=== PATIENT | male | born 1970 | race Caucasian/White ===

== ENCOUNTER 2018-05-13 22:00 | Inpatient (IN) | payer BC ==
[2018-05-13] MEDS: SOD CHLORIDE 0.9% 1,000 ML IV (23:55)
[2018-05-14] MEDS ORDERED: NACL 0.9% 3 ML SYG IV
[2018-05-14] MEDS ORDERED: BISACODYL (EC) 5 MG TAB PO
[2018-05-14] MEDS ORDERED: DOCUSATE SODIUM 100 MG CAP PO
[2018-05-14] MEDS: PANTOPRAZOLE IV 80 MG in SOD CHLORIDE 0.9% 100 ML IVPB (01:00)
[2018-05-14] MEDS: OCTREOTIDE 50 MCG in SOD CHLORIDE 0.9% 50 ML IVPB (01:04)
[2018-05-14 01:14] LABS: ADD MAN DIFF? NO
[2018-05-14] MEDS: THIAMINE 200 MG INJ IM ×3 (01:14→08:28)
[2018-05-14 01:16] LABS: ABNORMAL IP MESSAGE 1; BASOPHILS % 0.4 % (0.0-2.0); EOSINOPHILS % 0.2 % (0.0-7.0); HEMATOCRIT 24.5 % (42.0-52.0); HEMOGLOBIN 8.3 g/dl (14.0-18.0); LYMPHOCYTES # 1.3 10^3/ul (0.8-2.9); LYMPHOCYTES % 24.8 % (15.0-51.0); MEAN CORPUSCULAR HEMOGLOBIN 30.4 pg (29.0-33.0); MEAN CORPUSCULAR HGB CONC 33.9 g/dl (32.0-37.0); MEAN CORPUSCULAR VOLUME 89.7 fl (82.0-101.0); MEAN PLATELET VOLUME 10.4 fl (7.4-10.4); MONOCYTE # 0.4 10^3/ul (0.3-0.9); MONOCYTES % 7.1 % (0.0-11.0); NEUTROPHIL # 3.5 10^3/ul (1.6-7.5); NEUTROPHILS % 67.1 % (39.0-77.0); PLATELET COUNT 89 10^3/UL (140-415); POSITIVE DIFF @See below; RED BLOOD COUNT 2.73 10^6/ul (4.70-6.10)
[2018-05-14 01:16] LABS: WHITE BLOOD COUNT 5.2 10^3/ul (4.8-10.8)
[2018-05-14] MEDS: PANTOPRAZOLE IV 80 MG in SOD CHLORIDE 0.9% 100 ML IV ×2 (01:19→10:00)
[2018-05-14] MEDS: OCTREOTIDE 1 MG in DEXTROSE 5% 95 ML IV (01:23)
[2018-05-14] MEDS: ONDANSETRON 4 MG INJ IV (01:30)
[2018-05-14 01:34] LABS: ALANINE AMINOTRANSFERASE 50 IU/L (13-69); ALBUMIN 2.8 g/dl (3.3-4.9); ALBUMIN/GLOBULIN RATIO 1.27; ALKALINE PHOSPHATASE 54 IU/L (42-121); ANION GAP 8 (5-13); ASPARTATE AMINO TRANSFERASE 43 IU/L (15-46); BLOOD UREA NITROGEN 9 mg/dl (7-20); CARBON DIOXIDE 25 mmol/L (21-31); CHLORIDE 103 mmol/L (97-110); CHOL/HDL RATIO 1.5 RATIO; CHOLESTEROL 109 mg/dl (100-200); CREATININE 0.68 mg/dl (0.61-1.24); Estimated GFR > 60 mL/min (>60); GLUCOSE 85 mg/dl (70-220); HDL CHOLESTEROL 69 mg/dl (27-67); LDL CHOLESTEROL,CALCULATED 34 mg/dl; POTASSIUM 3.8 mmol/L (3.5-5.1); SODIUM 136 mmol/L (135-144); TRIGLYCERIDES 32 mg/dl (0-149)
[2018-05-14 01:35] LABS: HEMOGLOBIN A1C 5.3 % (0-5.9)
[2018-05-14 01:36] LABS: INR 1.06; PROTIME 13.9 Sec (11.9-14.9); PT RATIO 1.1
[2018-05-14 01:51] LABS: ETHANOL < 10.0 mg/dl (0-0)
[2018-05-14 02:40] LABS: FOLATE > 20.0 ng/ml (2.8-20.0)
[2018-05-14] MEDS: MULTIVITAMINS 10 ML, THIAMINE 100 MG, FOLIC ACID 1 MG in SOD CHLORIDE 0.9% 1,000 ML IVPB ×2 (03:00→09:00)
[2018-05-14 05:14] LABS: ADD MAN DIFF? NO
[2018-05-14 05:41] LABS: WHITE BLOOD COUNT 3.2 10^3/ul (4.8-10.8)
[2018-05-14 05:41] LABS: ABNORMAL IP MESSAGE 1; BASOPHILS % 0.6 % (0.0-2.0); EOSINOPHILS % 0.6 % (0.0-7.0); HEMATOCRIT 24.5 % (42.0-52.0); HEMOGLOBIN 8.2 g/dl (14.0-18.0); LYMPHOCYTES # 1.2 10^3/ul (0.8-2.9); LYMPHOCYTES % 36.5 % (15.0-51.0); MEAN CORPUSCULAR HEMOGLOBIN 30.3 pg (29.0-33.0); MEAN CORPUSCULAR HGB CONC 33.5 g/dl (32.0-37.0); MEAN CORPUSCULAR VOLUME 90.4 fl (82.0-101.0); MONOCYTE # 0.3 10^3/ul (0.3-0.9); MONOCYTES % 9.3 % (0.0-11.0); NEUTROPHIL # 1.7 10^3/ul (1.6-7.5); NEUTROPHILS % 52.7 % (39.0-77.0); PLATELET COUNT 86 10^3/UL (140-415); POSITIVE DIFF @See below; RED BLOOD COUNT 2.71 10^6/ul (4.70-6.10)
[2018-05-14 06:19] LABS: HEMOGLOBIN A1C 5.1 % (0-5.9)
[2018-05-14 06:20] LABS: ALANINE AMINOTRANSFERASE 48 IU/L (13-69); ALBUMIN 2.7 g/dl (3.3-4.9); ALBUMIN/GLOBULIN RATIO 1.28; ALKALINE PHOSPHATASE 51 IU/L (42-121); ANION GAP 7 (5-13); ASPARTATE AMINO TRANSFERASE 41 IU/L (15-46); BILIRUBIN,INDIRECT 1.1 mg/dl (0-1.1); BILIRUBIN,TOTAL 1.1 mg/dl (0.2-1.3); BLOOD UREA NITROGEN 10 mg/dl (7-20); CALCIUM 7.9 mg/dl (8.4-10.2); CARBON DIOXIDE 27 mmol/L (21-31); CHLORIDE 103 mmol/L (97-110); CHOL/HDL RATIO 1.6 RATIO; CHOLESTEROL 104 mg/dl (100-200); Estimated GFR > 60 mL/min (>60); GLUCOSE 89 mg/dl (70-220); HDL CHOLESTEROL 64 mg/dl (27-67); LDL CHOLESTEROL,CALCULATED 33 mg/dl; POTASSIUM 3.9 mmol/L (3.5-5.1); SODIUM 137 mmol/L (135-144); TOTAL PROTEIN 4.8 g/dl (6.1-8.1); TRIGLYCERIDES 37 mg/dl (0-149)
[2018-05-14] MEDS: SOD CHLORIDE 0.9% 1,000 ML IV ×3 (09:55→22:04)
[2018-05-14 10:57] LABS: IRON 230 ug/dl (35-150)
[2018-05-14 11:06] LABS: % IRON SATURATION 82 % SAT (22-52); TOTAL IRON BINDING CAPACITY 282 ug/dl (241-421)
[2018-05-14] MEDS ORDERED: PROPOFOL 60 ML (11:34)
[2018-05-14] MEDS: DOCUSATE SODIUM 100 MG CAP PO ×2 (12:00→22:03)
[2018-05-14] MEDS: CHLORDIAZEPOXIDE 25 MG CAP PO ×2 (12:51→22:03)
[2018-05-14 15:58] LABS: ADD MAN DIFF? NO
[2018-05-14 16:00] LABS: ABNORMAL IP MESSAGE 1; BASOPHILS % 0.3 % (0.0-2.0); EOSINOPHILS % 0.6 % (0.0-7.0); HEMATOCRIT 25.5 % (42.0-52.0); HEMOGLOBIN 8.4 g/dl (14.0-18.0); LYMPHOCYTES # 1.2 10^3/ul (0.8-2.9); LYMPHOCYTES % 32.1 % (15.0-51.0); MEAN CORPUSCULAR HEMOGLOBIN 30.1 pg (29.0-33.0); MEAN CORPUSCULAR HGB CONC 32.9 g/dl (32.0-37.0); MEAN CORPUSCULAR VOLUME 91.4 fl (82.0-101.0); MEAN PLATELET VOLUME 10.8 fl (7.4-10.4); MONOCYTE # 0.3 10^3/ul (0.3-0.9); NEUTROPHIL # 2.1 10^3/ul (1.6-7.5); NEUTROPHILS % 58.7 % (39.0-77.0); PLATELET COUNT 91 10^3/UL (140-415); POSITIVE DIFF @See below; RED BLOOD COUNT 2.79 10^6/ul (4.70-6.10); RED CELL DISTRIBUTION WIDTH 14.8 % (11.5-14.5)
[2018-05-14 16:00] LABS: WHITE BLOOD COUNT 3.6 10^3/ul (4.8-10.8)
[2018-05-14 18:05] LABS: ADD MAN DIFF? NO
[2018-05-14 18:09] LABS: WHITE BLOOD COUNT 4.5 10^3/ul (4.8-10.8)
[2018-05-14 18:09] LABS: ABNORMAL IP MESSAGE 1; BASOPHILS % 0.7 % (0.0-2.0); EOSINOPHILS % 0.9 % (0.0-7.0); HEMATOCRIT 26.9 % (42.0-52.0); HEMOGLOBIN 9.1 g/dl (14.0-18.0); LYMPHOCYTES # 1.6 10^3/ul (0.8-2.9); LYMPHOCYTES % 35.8 % (15.0-51.0); MEAN CORPUSCULAR HEMOGLOBIN 30.4 pg (29.0-33.0); MEAN CORPUSCULAR HGB CONC 33.8 g/dl (32.0-37.0); MEAN PLATELET VOLUME 10.9 fl (7.4-10.4); MONOCYTE # 0.4 10^3/ul (0.3-0.9); MONOCYTES % 8.4 % (0.0-11.0); NEUTROPHIL # 2.4 10^3/ul (1.6-7.5); NEUTROPHILS % 53.8 % (39.0-77.0); POSITIVE DIFF @See below; RED BLOOD COUNT 2.99 10^6/ul (4.70-6.10); RED CELL DISTRIBUTION WIDTH 14.9 % (11.5-14.5)
[2018-05-14 18:11] LABS: PLATELET COUNT 102 10^3/UL (140-415)
[2018-05-14] MEDS: PANTOPRAZOLE 40 MG INJ IV (19:40)
[2018-05-14 23:45] LABS: ADD MAN DIFF? NO
[2018-05-14 23:49] LABS: WHITE BLOOD COUNT 3.4 10^3/ul (4.8-10.8)
[2018-05-14 23:49] LABS: ABNORMAL IP MESSAGE 1; BASOPHILS % 0.6 % (0.0-2.0); EOSINOPHILS # 0.1 10^3/ul (0.0-0.5); EOSINOPHILS % 1.5 % (0.0-7.0); HEMATOCRIT 26.7 % (42.0-52.0); HEMOGLOBIN 8.8 g/dl (14.0-18.0); LYMPHOCYTES # 1.3 10^3/ul (0.8-2.9); LYMPHOCYTES % 38.8 % (15.0-51.0); MEAN CORPUSCULAR VOLUME 91.1 fl (82.0-101.0); MEAN PLATELET VOLUME 10.4 fl (7.4-10.4); MONOCYTE # 0.3 10^3/ul (0.3-0.9); NEUTROPHIL # 1.7 10^3/ul (1.6-7.5); NEUTROPHILS % 49.8 % (39.0-77.0); PLATELET COUNT 91 10^3/UL (140-415); POSITIVE DIFF @See below; RED BLOOD COUNT 2.93 10^6/ul (4.70-6.10); RED CELL DISTRIBUTION WIDTH 14.6 % (11.5-14.5)
[2018-05-15] MEDS: SOD CHLORIDE 0.9% 1,000 ML IV ×2 (05:23→10:11)
[2018-05-15] MEDS: PANTOPRAZOLE 40 MG INJ IV (05:24)
[2018-05-15] MEDS: LORAZEPAM 4 MG/ML VIAL IV (06:01)
[2018-05-15] MEDS: THIAMINE 200 MG INJ IM (09:46)
[2018-05-15] MEDS: CHLORDIAZEPOXIDE 25 MG CAP PO (09:47)
[2018-05-15] MEDS: DOCUSATE SODIUM 100 MG CAP PO (09:47)
[2018-05-15] MEDS ORDERED: CHLORDIAZEPOXIDE 25 MG CAP PO (13:00)
[2018-05-16] MEDS ORDERED: CHLORDIAZEPOXIDE 25 MG CAP PO (13:00)
== END 2018-05-15 12:46 | disposition home or self-care (01) | DRG 378 ==
LOC: 6WM 22:00
PROVIDERS: Internal Medicine
PROC: 0DB68ZX Excision of Stomach, Via Natural or Artificial Opening Endoscopic, Diagnostic (ICD-10-PCS; principal; 2018-05-14 11:15)
PROC: 0DB78ZX Excision of Stomach, Pylorus, Via Natural or Artificial Opening Endoscopic, Diagnostic (ICD-10-PCS; 2018-05-14 11:15)
DX: K29.21 Alcoholic gastritis with bleeding (principal); F10.239 Alcohol dependence with withdrawal, unspecified; D61.818 Other pancytopenia; K22.70 Barrett's esophagus without dysplasia; K44.9 Diaphragmatic hernia without obstruction or gangrene; K21.9 Gastro-esophageal reflux disease without esophagitis; K76.0 Fatty (change of) liver, not elsewhere classified
CPT/HCPCS: 80053; 80061; 80307; 82607; 82746; 83036; 83540; 83735; 84443; 85025; 85610; 85730; 86850; 86900; 86901; 88305; 88312; 88313